=== PATIENT | male | born 1965 | race Caucasian/White ===

== ENCOUNTER → 2016-12-03 | Outpatient (CLI) | payer OTHER ==
--- NOTE | 2016-12-05 09:34 | EXERCISE STRESS ECHO ---
*NOTICE TO RECEIVING LIBERTARIAN AGENCY This information is strictly Confidential and protected under [place] law. [place] law prohibits you from making any further disclosure of this information unless further disclosure is expressly permitted by the written consent of the person to whom it pertains or is authorized by law. A general authorization for the release of medical or other information is not sufficient for this purpose. Hospital accepts no responsibility if the information is made available to any other person, INCLUDING THE PATIENT. Interpretation Summary * Name: LAMAR MARMOLEJO Study Date: 12/03/2016 08:51 AM BP: 144/83 mmHg * Patient Location: [facility] HR: 65 * : 1965 (M/d/yyyy) Gender: Male Height: 73 in * Age: 51 yrs Ethnicity: CA Weight: 230 lb * Ordering Physician: Alessandra Galvin * Referring Physician: Alessandra Galvin D.O. * Performed By: Amanda Guillen RDCS * * Reason For Study: SOB * BSA: 2.3 m2 * -- Conclusions -- * Normal stress echocardiogram at 12.9 METS and a peak heart rate of 97% predicted maximum. * No exercise induced chest pain. * No ECG changes. * Baseline echocardiogram notes normal left ventricular systolic function and no valvular pathology. Procedure Details * ECHOEX, CPT #02576 Left Ventricle * The left ventricle is normal in size. * There is normal left ventricular wall thickness. * Ejection Fraction = 60-65%. * Resting wall motion: Normal. Stress wall motion: Appropriate increase in Left ventricular systolic function and decrease in cavity size. No stress induced segmental wall motion abnormalities. Right Ventricle * The right ventricle is normal in size and function. Atria * The left atrium is mildly dilated. * Right atrial size is normal. * No ASD detected; PFO is not assessed. Mitral Valve * The mitral valve anatomy is normal. * There is no mitral valve stenosis. * Significant mitral regurgitation is absent. Tricuspid Valve * The tricuspid valve anatomy is normal. * Significant tricuspid regurgitation is absent. Aortic Valve * The aortic valve is normal in structure and function. * No hemodynamically significant valvular aortic stenosis. * There is no significant aortic regurgitation. Pulmonic Valve * The pulmonary valve is not well seen, but the Doppler examination is normal without significant regurgitation or stenosis. Great Vessels * The aortic root is normal size. * The pulmonary artery is not well visualized, but is probably normal size. Pericardium * There is no pericardial effusion. Stress Parameters * Normal baseline electrocardiogram. * Stress ECG: No ST changes. No arrhythmias. * The stress portion of this study was personally supervised by the undersigned interpreting physician. * Rest heart rate was '65' BPM. * Rest blood pressure was '144/83' * Maximum heart rate achieved was 166 bpm. * Maximum heart rate was 97 % of maximum age-predicted heart rate. * Maximum blood pressure was '206/82' * Total exercise time was '10:03' * Maximum exercise MET level achieved was '12.90' METS * Maximum treadmill speed was '4.20' miles per hour. * Maximum treadmill elevation was '16.00'% grade. * Exercise was terminated due to 'ACHIEVING TARGET HR' MMode 2D Measurements and Calculations IVSd 1.5 cm IVSs 1.7 cm LVIDd 4.1 cm LVIDs 2.7 cm LVPWd 1.2 cm LVPWs 1.6 cm IVS/LVPW 1.3 FS 34.3 % EDV(Teich) 72.7 ml ESV(Teich) 26.3 ml EF(Teich) 63.9 % EDV(cubed) 67.1 ml ESV(cubed) 19.0 ml EF(cubed) 71.7 % % IVS thick 8.0 % % LVPW thick 37.8 % LV mass(C)d 205.5 grams LV mass(C)dI 90.0 grams/m\S\2 LV mass(C)s 162.0 grams LV mass(C)sI 71.0 grams/m\S\2 SV(Teich) 46.4 ml SI(Teich) 20.3 ml/m\S\2 SV(cubed) 48.1 ml SI(cubed) 21.1 ml/m\S\2 LA dimension 4.0 cm LVAd ap4 34.3 cm\S\2 LVLd ap4 8.9 cm EDV(MOD-sp4) 109.0 ml LVAs ap4 18.1 cm\S\2 LVLs ap4 7.1 cm ESV(MOD-sp4) 38.9 ml EF(MOD-sp4) 64.3 % LVAd ap2 30.0 cm\S\2 LVLd ap2 8.9 cm EDV(MOD-sp2) 87.7 ml LVAs ap2 15.6 cm\S\2 LVLs ap2 6.8 cm ESV(MOD-sp2) 32.5 ml EF(MOD-sp2) 62.9 % SV(MOD-sp4) 70.1 ml SI(MOD-sp4) 30.7 ml/m\S\2 SV(MOD-sp2) 55.2 ml SI(MOD-sp2) 24.2 ml/m\S\2 Doppler Measurements and Calculations MV E max terra 66.8 cm/sec MV A max terra 53.1 cm/sec MV E/A 1.3 MV dec time 0.25 sec Ao V2 max 139.9 cm/sec Ao max PG 7.8 mmHg Ao max PG (full) 2.5 mmHg LV V1 max PG 5.4 mmHg LV V1 max 115.7 cm/sec
== END | disposition home or self-care (01) ==
LOC: C.CPL 08:44
PROVIDERS: ATTEND Family Medicine
DX: R06.02 Shortness of breath (principal)

== ENCOUNTER → 2016-12-08 | Outpatient (CLI) | payer OTHER ==
--- NOTE | 2016-12-08 09:49 | DIAGNOSTIC IMAGING REPORT ---
CHEST 2 VIEWS ROUTINE HISTORY: Short of breath. COMPARISON: None. FINDINGS: The lungs are clear. Cardiac silhouette is normal in size. No pleural effusions. No pneumothorax. IMPRESSION: No acute process. Electronically signed by: Nikita Danielle M.D. 12/08/2016 9:47 AM Dictated Date/Time: 12/08/2016 9:45 AM
== END | disposition home or self-care (01) ==
LOC: C.RAD 09:21
PROVIDERS: ATTEND Family Medicine
DX: R06.02 Shortness of breath (principal)

== ENCOUNTER 2018-07-19 15:58 | Inpatient (IN) ==
[2018-07-19 16:57] LABS: Basophils # (auto) 0.02 K/uL (0-0.2); Basophils % (auto) 0.1 %; Eosinophils # (auto) 0.08 K/uL (0-0.5); Eosinophils % (auto) 0.6 %; Hematocrit (blood only) 46.7 % (42-52); Hemoglobin 15.7 g/dL (14.0-18.0); Immature Granulocytes # (auto) 0.04 K/uL (0.00-0.02); Immature Granulocytes % (auto) 0.3 %; Lymphocytes # (auto) 1.23 K/uL (1.2-3.4); Mean Corpuscular Hgb Conc 33.6 g/dL (32-36); Mean Corpuscular Volume 92.7 fL (80-100); Mean Platelet Volume 11.1 fL (7.4-10.4); Monocytes # (auto) 1.39 K/uL (0.11-0.59); Monocytes % (auto) 10.1 %; Neutrophils # (auto) 10.96 K/uL (1.4-6.5); Neutrophils % (auto) 79.9 %; Platelet Count 165 K/uL (130-400); RDW Coefficient of Variation 13.7 % (11.5-14.5); RDW Standard Deviation 46.4 fL (36.4-46.3); Red Blood Count 5.04 M/uL (4.7-6.1); White Blood Count 13.72 K/uL (4.8-10.8)
[2018-07-19 17:00] LABS: iSTAT Hemoglobin 16.3 g/dl (14.0-18.0); iSTAT Ionized Calcium 1.11 mmol/l (1.12-1.32)
[2018-07-19] MEDS ORDERED: OPTIRAY 320 125ml IV PRN (17:16)
[2018-07-19 17:23] LABS: Alanine Aminotransferase 49 U/L (12-78); Aspartate Aminotransferase 16 U/L (15-37); BUN Creatinine Ratio 14.9 (10-20); Blood Urea Nitrogen 19 mg/dl (7-18); Carbon Dioxide 27 mmol/L (21-32); Chloride 102 mmol/L (98-107); Creatinine Clr Calc Pharmacy 85.9 ml/min; Est GFR (African American) 75.3; Glucose 97 mg/dl (70-99); Sodium 136 mmol/L (136-145)
[2018-07-19 17:28] LABS: Alkaline Phosphatase 76 U/L (45-117); Bilirubin,Total 0.5 mg/dl (0.2-1); Creatine Kinase 256 U/L (39-308); Creatine Kinase MB 1.6 ng/ml (0.5-3.6); Globulin 4.1 gm/dl (2.5-4.0); Total Protein 8.1 gm/dl (6.4-8.2); Troponin I < 0.015 ng/ml (0-0.045)
--- NOTE | 2018-07-19 17:30 | CT Scan Report ---
CT angio chest PE protocol CLINICAL HISTORY: 53 years-old Male presenting with [place] ^Chest Pain, eval for PE . TECHNIQUE: Multidetector CT angiography of the chest was performed after administration of intravenou s contrast. 3-D volumetric and/or maximum intensity projection (MIP) images were subsequently reconst ructed for review. IV contrast: 119 mL of Optiray 320. A dose lowering technique was used consistent with the principles of ALARA (as low as reasonably achievable). COMPARISON: Chest x-ray from 12/08/2016. CT DOSE (mGy.cm): The estimated cumulative dose is 578.14 mGy.cm. 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 Pulmonary vasculature: The study is suboptimal for the assessment of the pulmonary vascular tree secondary to timing of the contrast bolus. Allowing for limited image quality, no central filling defect to suggest pulmonary em bolus. Main pulmonary artery is not enlarged. No flattening of the interventricular septum. No intrac ardiac filling defect. No reflux of contrast into the hepatic veins. Remaining chest: On soft tissue windows, normal thyroid and thoracic inlet. No axillary, supraclavicular, hilar, or me diastinal lymphadenopathy. Normal aorta. Normal heart size. No pericardial or pleural effusion. Hepat ic steatosis. On lung windows, no pneumothorax. Central airways patent. Glass opacities likely atelectasis. Solid 3 .6 cm mass in the lateral segment of the right middle lobe with spiculated margins. Adjacent solid 4 mm satellite nodule (series 4 image 112), subpleural solid 6 mm nodule (series 4 image 119), and rich d 5 mm nodule (series 4 image 123). This abuts the overlying pleura though does not demonstrate convi ncing evidence of extrapleural fat invasion. No bony changes of the adjacent anterior right fourth ri b evident. Solid subpleural 3 mm nodule in the right upper lobe (series 4 image 166). Fissural solid slightly spiculated 6 mm nodule in the superior segment of the right lower lobe (series 4 image 156). Numerous additional punctate nodules in the right lung are nonspecific. Few calcified granulomata in the left lung. No pulmonary nodule is evident in the left lung. On bone windows, normal osseous structures. IMPRESSION: 1. Allowing for suboptimal image quality, no evidence of pulmonary embolus. 2. Solid 3.6 cm mass in the right middle lobe highly suspicious for primary bronchogenic carcinoma. Multiple satellite pulmonary nodules in the right middle lobe likely from spread of disease. Addition al solid nodules in the right lung are indeterminate and regional spread of disease cannot be exclude d. No lymphadenopathy. Electronically signed by: Robbie Mitchell M.D. 07/19/2018 5:28 PM
--- NOTE | 2018-07-19 17:41 | Ultrasound Report ---
US abdomen limited CLINICAL HISTORY: 53 years-old Male presenting with Pt c/o RUQ abd pain. TECHNIQUE: Real-time grayscale and limited color Doppler ultrasound imaging of the abdomen limited to the right upper quadrant was performed. COMPARISON: 03/08/2010. FINDINGS: Pancreas: Visualized portions of the pancreatic head and body normal. Liver: Mildly hyperechogenic parenchyma, although the right hemidiaphragm remains visible, likely ind icating mild steatosis. No sonographic evidence of hepatic mass. Main portal vein patent with normal directional flow. Biliary: No intrahepatic biliary ductal dilatation. Common bile duct measures up to 4 mm in diameter. Gallbladder: No evidence of gallstones, gallbladder wall thickening, gallbladder distention, or peric holecystic fluid or inflammatory change. Right kidney: Normal in appearance without evidence of hydronephrosis. Ascites: None. Other: None. IMPRESSION: 1. No cholelithiasis or biliary ductal dilatation. 2. Hepatic steatosis. Correlate with liver function tests to exclude steatohepatitis as a cause for abdominal pain. Electronically signed by: Robbie Mitchell M.D. 07/19/2018 5:40 PM
--- NOTE | 2018-07-19 19:32 | History & Physical Report ---
Date of Service July 19, 2018 Assessment & Plan (1) Lung mass: Mass in RML with satellite nodules suspicious for bronchogenic carcinoma. Patient with no clear risk factors. His is at bedside, they are both anxious and tearful * Will admit to medical floor * Consult Pulmonolgy for Bronchoscopy - will be done on July 21 * Oncology consultation after bronch * (2) Chest pain: Pleuritic, right anterior chest pain. No tenderness with palpation. Possibly secondary to underlying mass. EKG with no evidence of ischemia * Tylenol as needed for pain * F/E/N- Heplock, monitor electroytes and replete as needed, Regular diet as tolerated. NPO after midnight tomorrow for possible bronchoscopy on 07/21/18 Ppx - Lovenox for DVT prophylaxis Code - Full per discussion with patient Dispo - Admit to medical floor for continued workup of lung mass History of Present Illness Chief Complaint: Rib pain Primary Care Provider: Alessandra Galvin DO Patient is a 53-year-old male with no significant past medical or surgical history presenting with right anterior rib pain. Patient noticed the pain this morning, worse with deep inspiration. He was seen at [facility] earlier today where an EKG and chest x-ray were performed. Patient states that the EKG was normal but there were some suspicious findings on the chest x-ray therefore he was sent to the ER for additional workup. Patient had CTA of the chest performed which revealed a solid 3.6 cm mass in the right middle lobe highly suspicious for primary bronchogenic carcinoma. Also with multiple satellite pulmonary nodules in the right middle lobe likely from spread of disease. Additional solid nodules in the right lung are indeterminate and regional spread of disease cannot be excluded. No lymphadenopathy. Patient denies fevers/chills/sweats/weight loss. Denies chest pain/palpitations /cough/wheeze. He is a lifelong non-smoker. Physically active, walks approximately 5 miles per day and lifts weights every other day. 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 Was employed at a [employer] in the past. Patient reports having a colonoscopy and EGD last year which were both normal. Allergies Allergy/AdvReac Type Severity Reaction Status Date / Time No Known Allergies Allergy Unknown Verified 07/19/18 16:48 Home Medications Home Medications Medication Instructions Recorded Confirmed Type esomeprazole magnesium [Nexium] 20 mg PO DAILY PRN 07/19/18 07/19/18 History Past Med/Surg History Medical History No significant past medical history Surgical History S/P excision of lipoma Family History Other Colon cancer Gallbladder cancer Social History marital status: Current Living Situation: Spouse current occupational status: employed Feels Safe at Home: Yes Smoking Status: Never smoker Hx Alcohol Use: No Hx Substance Use: No Preferred Language: Czech Review of Systems All systems reviewed & are unremarkable except as noted in HPI & below Physical Exam 2 Vital Signs (Past 24 Hours): Last Vital Signs Temp 37.0 C 07/19/18 16:01 Pulse 90 07/19/18 16:52 Resp 19 07/19/18 16:50 BP 175/99 H 07/19/18 16:50 Pulse Ox 97 07/19/18 16:52 Physical Exam: General: patient resting comfortably, NAD, anxious in appearance, non-toxic, AA&O x 4 Skin: warm, dry, intact, no rashes or lesions HEENT: NC/AT, PERRL, EOMI, anicteric sclera, conjunctiva without injection, external ear normal to inspection and nontender, nares patent, moist mucus membranes, dentition intact, no oropharyngeal lesions, neck supple, trachea midline, no LAD, no thyromegaly, no JVD Heart: +S1/S2, regular, no m/r/g Lungs: equal air entry bilaterally, no rales/rhonchi/wheezes Abd: +BS, soft, NT/ND, no masses/organomegaly/ascites Ext: warm, 2+ pulses in UE/LE bilaterally, no clubbing/cyanosis or edema Neuro: nonfocal, patient AA&O x 4, speech intact, no facial droop, moving all extremities on command with equal strength 5/5 Results & Data Laboratory Results Lab Results 07/19/18 07/19/18 07/19/18 Range/Units 16:41 16:41 16:48 WBC 13.72 H (4.8-10.8) K/uL RBC 5.04 (4.7-6.1) M/uL Hgb 15.7 (14.0-18.0) g/dL POC Hgb 16.3 (14.0-18.0) g/dl Hct 46.7 (42-52) % POC Hct 48 (42-52) % MCV 92.7 (80-100) fL MCH 31.2 (25-34) pg MCHC 33.6 (32-36) g/dL RDW Std Deviation 46.4 H (36.4-46.3) fL RDW Coeff of Mindy 13.7 (11.5-14.5) % Plt Count 165 (130-400) K/uL MPV 11.1 H (7.4-10.4) fL Immature Gran % (Auto) 0.3 % Neut % (Auto) 79.9 % Lymph % (Auto) 9.0 % [place] % (Auto) 10.1 % Eos % (Auto) 0.6 % Baso % (Auto) 0.1 % Immature Gran # (Auto) 0.04 H (0.00-0.02) K/uL Neut # (Auto) 10.96 H (1.4-6.5) K/uL Lymph # (Auto) 1.23 (1.2-3.4) K/uL [place] # (Auto) 1.39 H (0.11-0.59) K/uL Eos # (Auto) 0.08 (0-0.5) K/uL Baso # (Auto) 0.02 (0-0.2) K/uL POC Sodium 139 (135-144) mEq/L Sodium 136 (136-145) mmol/L POC Potassium 3.9 (3.3-5.0) mEq/L Potassium 4.0 (3.5-5.1) mmol/L POC Chloride 100 L (101-112) mEq/L Chloride 102 (98-107) mmol/L Carbon Dioxide 27 (21-32) mmol/L POC Total CO2 27 (24-31) mEq/l Anion Gap 7.0 (3-11) POC Anion Gap 17.0 (16-25) mmol/L POC BUN 20 H (7-18) mg/dl BUN 19 H (7-18) mg/dl Creatinine 1.27 (0.6-1.4) mg/dl POC Creatinine 1.2 (0.6-1.3) mg/dl Est Cr Clr Drug Dosing 85.9 ml/min Est GFR ( Amer) 75.3 Est GFR (Non-Af Amer) 65.0 BUN/Creatinine Ratio 14.9 (10-20) Glucose 97 (70-99) mg/dl POC Glucose (other) 103 H (70-99) mg/dl Calcium 9.0 (8.5-10.1) mg/dl POC Ioniz Calcium Mark 1.11 L (1.12-1.32) mmol/l Total Bilirubin 0.5 (0.2-1) mg/dl AST 16 (15-37) U/L ALT 49 (12-78) U/L Alkaline Phosphatase 76 (45-117) U/L Total Creatine Kinase 256 (39-308) U/L CK-MB (CK-2) 1.6 (0.5-3.6) ng/ml CK/CKMB % Calc 0.6 (0-3.0) Troponin I < 0.015 (0-0.045) ng/ml Total Protein 8.1 (6.4-8.2) gm/dl Albumin 4.0 (3.4-5.0) gm/dl Globulin 4.1 H (2.5-4.0) gm/dl Albumin/Globulin Ratio 1.0 (0.9-2) Lipase 142 (73-393) U/L Diagnostic Findings CT angio chest PE protocol CLINICAL HISTORY: 53 years-old Male presenting with [place] ^Chest Pain, eval for PE . TECHNIQUE: Multidetector CT angiography of the chest was performed after administration of intravenous contrast. 3-D volumetric and/or maximum intensity projection (MIP) images were subsequently reconstructed for review. IV contrast : 119 mL of Optiray 320. A dose lowering technique was used consistent with the principles of ALARA (as low as reasonably achievable). COMPARISON: Chest x-ray from 12/08/2016. CT DOSE (mGy.cm): The estimated cumulative dose is 578.14 mGy.cm. 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 Pulmonary vasculature: The study is suboptimal for the assessment of the pulmonary vascular tree secondary to timing of the contrast bolus. Allowing for limited image quality, no central filling defect to suggest pulmonary embolus. Main pulmonary artery is not enlarged. No flattening of the interventricular septum. No intracardiac filling defect. No reflux of contrast into the hepatic veins. Remaining chest: On soft tissue windows, normal thyroid and thoracic inlet. No axillary, supraclavicular, hilar, or mediastinal lymphadenopathy. Normal aorta. Normal heart size. No pericardial or pleural effusion. Hepatic steatosis. On lung windows, no pneumothorax. Central airways patent. Glass opacities likely atelectasis. Solid 3.6 cm mass in the lateral segment of the right middle lobe with spiculated margins. Adjacent solid 4 mm satellite nodule ( series 4 image 112), subpleural solid 6 mm nodule (series 4 image 119), and solid 5 mm nodule (series 4 image 123). This abuts the overlying pleura though does not demonstrate convincing evidence of extrapleural fat invasion. No bony changes of the adjacent anterior right fourth rib evident. Solid subpleural 3 mm nodule in the right upper lobe (series 4 image 166). Fissural solid slightly spiculated 6 mm nodule in the superior segment of the right lower lobe (series 4 image 156). Numerous additional punctate nodules in the right lung are nonspecific. Few calcified granulomata in the left lung. No pulmonary nodule is evident in the left lung. On bone windows, normal osseous structures. IMPRESSION: 1. Allowing for suboptimal image quality, no evidence of pulmonary embolus. 2. Solid 3.6 cm mass in the right middle lobe highly suspicious for primary bronchogenic carcinoma. Multiple satellite pulmonary nodules in the right middle lobe likely from spread of disease. Additional solid nodules in the right lung are indeterminate and regional spread of disease cannot be excluded. No lymphadenopathy. Electronically signed by: Robbie Mitchell M.D. 07/19/2018 5:28 PM US abdomen limited CLINICAL HISTORY: 53 years-old Male presenting with Pt c/o RUQ abd pain. TECHNIQUE: Real-time grayscale and limited color Doppler ultrasound imaging of the abdomen limited to the right upper quadrant was performed. COMPARISON: 03/08/2010. FINDINGS: Pancreas: Visualized portions of the pancreatic head and body normal. Liver: Mildly hyperechogenic parenchyma, although the right hemidiaphragm remains visible, likely indicating mild steatosis. No sonographic evidence of hepatic mass. Main portal vein patent with normal directional flow. Biliary: No intrahepatic biliary ductal dilatation. Common bile duct measures up to 4 mm in diameter. Gallbladder: No evidence of gallstones, gallbladder wall thickening, gallbladder distention, or pericholecystic fluid or inflammatory change. Right kidney: Normal in appearance without evidence of hydronephrosis. Ascites: None. Other: None. IMPRESSION: 1. No cholelithiasis or biliary ductal dilatation. 2. Hepatic steatosis. Correlate with liver function tests to exclude steatohepatitis as a cause for abdominal pain. Electronically signed by: Robbie Mitchell M.D. 07/19/2018 5:40 PM ECG Additional Comments: Study shows sinus rhythm at 100 bpm, normal axis, RQ=789, QRS=96, RJa=202 with incomplete right bundle branch block no evidence of acute ischemia Code Status & VTE Plan Code Status Full code VTE Prophylaxis Plan VTE Prophylaxis will be ordered: Yes Critical Care Time Critical Care Time: No _ (1) Chest pain Chest pain type: unspecified Ischemic chest pain type: Qualified Code(s): R07.9 - Chest pain, unspecified
[2018-07-19] MEDS ORDERED: ACETAMINOPHEN 325 MG TAB PO PRN (20:21)
[2018-07-19] MEDS ORDERED: ZOLPIDEM TARTRATE 5 MG TAB PO PRN (20:21)
[2018-07-19] MEDS ORDERED: INFLUENZA VIRUS QUAD VACCINE 0.5 ML SYR IM ONE (21:30)
[2018-07-19] MEDS ORDERED: INFLUENZA ADMINISTRATION CHARGE ONE (21:30)
[2018-07-20 07:34] LABS: Prothrombin Time 10.1 Seconds (9.0-12.0)
[2018-07-20 08:03] LABS: BUN Creatinine Ratio 11.5 (10-20); Calcium 9.1 mg/dl (8.5-10.1); Creatinine Clr Calc Pharmacy 93.2 ml/min; Est GFR (African American) 83.2; Est GFR (Non-African American) 71.8; Potassium 4.2 mmol/L (3.5-5.1)
[2018-07-20 08:05] LABS: Basophils # (auto) 0.01 K/uL (0-0.2); Basophils % (auto) 0.1 %; Eosinophils # (auto) 0.06 K/uL (0-0.5); Eosinophils % (auto) 0.5 %; Hemoglobin 15.5 g/dL (14.0-18.0); Immature Granulocytes # (auto) 0.03 K/uL (0.00-0.02); Immature Granulocytes % (auto) 0.3 %; Lymphocytes # (auto) 1.37 K/uL (1.2-3.4); Lymphocytes % (auto) 11.9 %; Mean Corpuscular Hgb Conc 33.7 g/dL (32-36); Mean Corpuscular Volume 92.4 fL (80-100); Mean Platelet Volume 10.6 fL (7.4-10.4); Monocytes # (auto) 1.59 K/uL (0.11-0.59); Monocytes % (auto) 13.8 %; Neutrophils # (auto) 8.48 K/uL (1.4-6.5); Neutrophils % (auto) 73.4 %; Platelet Count 164 K/uL (130-400); RDW Coefficient of Variation 13.5 % (11.5-14.5); RDW Standard Deviation 45.4 fL (36.4-46.3); Red Blood Count 4.98 M/uL (4.7-6.1); White Blood Count 11.54 K/uL (4.8-10.8)
[2018-07-20] MEDS ORDERED: predniSONE 50 MG TAB PO SCH (12:30)
--- NOTE | 2018-07-20 14:47 | Pulmonary Consultation ---
Date of Consultation July 20, 2018 Assessment & Plan (1) Lung mass: Impression: 1. Right middle lobe lung nodule with multiple nodules around it, and inflammatory changes in a patient who is low risk for malignancy given the fact he is non-smoker with no industrial exposure, no secondhand exposure to smoking , place the patient at very low risk for malignancy. The changes in his lung likely representing inflammatory versus infectious, he recently has dental work with dental clinic which could represent strep species versus actinomyces. 2. Pleuritic chest pain secondary to above. Plan: 1. I will treat the patient empirically with penicillin derivatives such as Augmentin for at least 14 days. 2. I will start the patient on prednisone empirically as well with 50 mg daily for 7 days only. 3. The patient has a recent trip to [place] but I am not aware of him had sick contact. Concerns about fungal infection from that area is a possibility. 4. His father has a history of colon cancer and cholangiole cancer but he was at later age and his father has history of ulcerative colitis. 5. Long Discussion Took Place with him and his , the plan is to continue with above regimen, obtain a PET scan next week, and if the PET scan is positive will proceed with navigational bronchoscopy. I have discussed the case with radiology, and they favor starting out with bronchoscopy if needed. 6. The patient can be discharged home with above. Discussed with Dr. Schmitt, appreciate his assistance. Thank you History of Present Illness Reason for Consultation: Lung nodule Requesting Physician: Dr. Schmitt Attending Physician: Vernon Schmitt History of Present Illness Dear Dr. Schmitt: Thank you for your kind referral of Mr. Reddy to pulmonary service. This is a 53-year-old gentleman who has been in his usual status of health, he is non -smoker lifetime, has been healthy and going to the gym and every day, presented to the ED with right-sided pleuritic chest pain that has been persistent for several hours prior to his presentation, the patient denies any cough or sputum production, no weight loss, no fever and no constitutional symptoms no sick contact. He did have a dental work with dental cleaning over a month ago. The patient did not have any sore throat rhinorrhea constitutional symptoms no increased swelling in his lower extremities no rash no abdominal pain no nausea or vomiting no dysphasia or dysphonia no blurry vision and no skin changes. In the ED, the patient was evaluated for the findings noted on the urgent care chest x-ray showing abnormality in the right chest. CAT scan of the chest was done which showed inflammatory changes with lung nodule and multiple satellite lesions also affecting the right middle lobe. The patient was not aware of any other symptoms or any previous history of pulmonary disease. He does not use even inhalers. 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 He has no significant past medical history, family history is consistent with his father who has ulcerative colitis, colon cancer but it was at later age in his life. He does have also cholangial. cancer as well. No significant surgical history either. Allergies Allergy/AdvReac Type Severity Reaction Status Date / Time No Known Allergies Allergy Unknown Verified 07/19/18 16:48 Home Medications Home Medications Medication Instructions Recorded Confirmed Type esomeprazole magnesium [Nexium] 20 mg PO DAILY PRN 07/19/18 07/19/18 History amoxicillin-pot clavulanate 1 tab PO BID #14 tab 07/20/18 Rx [Augmentin] prednisone 10 mg PO UD #20 tab 07/20/18 Rx Patient History Medical History GERD (gastroesophageal reflux disease) No significant past medical history Surgical History S/P excision of lipoma Family History Other Colon cancer Gallbladder cancer Social History marital status: Current Living Situation: Spouse current occupational status: employed Other Information That Helps Us Care for You: No Feels Safe at Home: Yes Smoking Status: Never smoker Do You Dip or Chew Tobacco: No Second Hand Exposure: No Hx Alcohol Use: Yes Alcohol type: wine Alcohol Intake Frequency: a few times a week Hx Substance Use: No Beliefs That Will Affect Care: None Preferred Language: Turkmen Review of Systems Apart from the above, review of system was unremarkable. Physical Exam 2 Vital Signs (Past 24 Hours): Last Vital Signs Temp 37.3 C 07/20/18 12:07 Pulse 79 07/20/18 12:07 Resp 18 07/20/18 12:07 BP 151/93 H 07/20/18 12:07 Pulse Ox 96 07/20/18 12:07 Physical Exam: Vital signs are stable, no fever, S1-S2 regular rate and rhythm , slight elevation in the blood pressure, no lymphadenopathy in neck area, no JVP, heart examination S1-S2 regular rate and rhythm, lungs are clear, abdomen is benign, no edema. No changes or clubbing in his digits. No rash no joint swelling and neurologically he is nonfocal.
[2018-07-20] MEDS ORDERED: AMOXICILLIN/CLAVULANATE 875 MG TAB PO SCH (17:00)
--- NOTE | 2018-07-21 05:41 | Discharge Summary ---
Date of Service July 20, 2018 Admission HPI Per Admitting Provider Patient is a 53-year-old male with no significant past medical or surgical history presenting with right anterior rib pain. Patient noticed the pain this morning, worse with deep inspiration. He was seen at [facility] earlier today where an EKG and chest x-ray were performed. Patient states that the EKG was normal but there were some suspicious findings on the chest x-ray therefore he was sent to the ER for additional workup. Patient had CTA of the chest performed which revealed a solid 3.6 cm mass in the right middle lobe highly suspicious for primary bronchogenic carcinoma. Also with multiple satellite pulmonary nodules in the right middle lobe likely from spread of disease. Additional solid nodules in the right lung are indeterminate and regional spread of disease cannot be excluded. No lymphadenopathy. Patient denies fevers/chills/sweats/weight loss. Denies chest pain/palpitations /cough/wheeze. He is a lifelong non-smoker. Physically active, walks approximately 5 miles per day and lifts weights every other day. 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 Was employed at a [employer] in the past. Patient reports having a colonoscopy and EGD last year which were both normal. Principal Diagnosis Lung Mass likely infectious Discharge Exam Constitutional WD/WN, vitals as above well developed and well nourished Eyes PERRL, conjunctivae normal, anicteric sclerae Neck trachea midline, no thyromegaly Respiratory normal respiratory effort, lungs clear to auscultation Cardiovascular RRR, no murmur, no edema Gastrointestinal (Abdomen) normal bowel sounds, soft, nontender, no hepatosplenomegaly Neurologic moves all extremities Lymphatic no cervical or axillary lymphadenopathy Discharge Data Allergies Allergy/AdvReac Type Severity Reaction Status Date / Time No Known Allergies Allergy Unknown Verified 07/19/18 16:48 Consultations 07/20/18 12:01 Consult [facility] track dresser Routine 07/19/18 18:30 ED Decision to Admit Stat 07/19/18 20:21 Consult Pulmonology Routine Ordered Studies 07/19/18 16:30 US abdomen limited Stat 07/19/18 16:31 CT angio chest PE protocol Stat Hospital Course (1) Lung mass: Mass in RML with satellite nodules suspicious for bronchogenic carcinoma. Patient with no clear risk factors. His is at bedside, they are both anxious and tearful * Will admit to medical floor * Consult Pulmonolgy for Bronchoscopy - will be done on July 21 * Oncology consultation after bronch * * Appreciate input from Pulmonology. * will treat the patient empirically with penicillin derivatives such as Augmentin for at least 14 days. Will discharge on prednisone taper Long Discussion Took Place with him and his , the plan is to continue with above regimen, obtain a PET scan next week, and if the PET scan is positive will proceed with navigational bronchoscopy. I have discussed the case with radiology, and they favor starting out with bronchoscopy if needed. The patient can be discharged home with above. (2) Chest pain: Pleuritic, right anterior chest pain. No tenderness with palpation. Possibly secondary to underlying mass. EKG with no evidence of ischemia * Tylenol as needed for pain * Total Time Total Time Spent Total Time Spent (In Minutes): 35 minutes Total Time Includes: Examination of the Patient, Discharge Planning and Medication Reconciliation Discharge Plan Discharge Items Patient Disposition: Home - Self-Care Reason For Visit: LUNG MASS Discharge Diagnosis: Lung mass, likely infectious Condition: Fair Discharge Goals: Decrease discomfort and Improve function Activity: Resume your previous activity Non-emergency contact: Primary Care Provider Call non-emergency contact if: you have any medication questions Diet: Regular Addtl Provider Instructions: Followup with PCP in 1-2 weeks. will obtain PET scan this week. Prescriptions: New amoxicillin-pot clavulanate [Augmentin] 875-125 mg tablet 1 tab PO BID Qty: 14 RF: 0 prednisone 10 mg tablet 10 mg PO UD Qty: 20 RF: 0 Continue esomeprazole magnesium [Nexium] 20 mg Capsule,Delayed Release(Dr/Ec) 20 mg PO DAILY PRN (Reason: Gi Upset) RF: 0 Visit Report Forms: [facility] [employer] Stand-Alone Forms: [facility] Discharge Orders: Discharge Order (Routine); Ordered 07/20/18 Ordered By: Vernon Schmitt Admission Data Admit Date/Time: 07/19/18 19:28 Attending Provider: Vernon Schmitt Admit Provider: Amanda Hackett Primary Care Provider: Alessandra Galvin Other Providers: Kenia Escobar Service: Surgical Services Other Interventions: Discharge Summary Assessment (RN) Last Done: 07/20/18 12:07 DC Date/Time DO NOT enter until pt leaves facility: 07/20/18 12:35
--- NOTE | 2018-07-23 12:22 | Emergency Department Note ---
Entered by Tanya Riggins acting as a scribe for Efrain Forman MD History of Present Illness General Chief complaint: Referred by Doctor Stated complaint: REFERRED BY DOCTOR, PAIN IN SIDE Time Seen by Provider: 07/19/18 16:22 Source: patient History of Present Illness Onset (ago): hour(s) (6.5) Location: abdomen (right upper) Radiation: other (right shoulder) Pain Consistency: + constant Maximum Pain Intensity: 4 Quality: + sharp Exacerbated By: + other (deep breaths) Associated symptoms: no shortness of breath The patient is a 53 year old male who presents to the Emergency Room with complaints of constant right upper abdominal pain that began 6.5 hours prior to arrival. The patient describes this pain as sharp. He states that his pain is exacerbated with deep breaths. The patient states his pain radiates to his right shoulder. He denies shortness of breath. The patient states that his pain began 1 hour after he ate breakfast. He states that he still has his gallbladder. Home Medications Home Medications Medication Instructions Recorded Confirmed Type esomeprazole magnesium [Nexium] 20 mg PO DAILY PRN 07/19/18 07/19/18 History amoxicillin-pot clavulanate 1 tab PO BID #14 tab 07/20/18 Rx [Augmentin] prednisone 10 mg PO UD #20 tab 07/20/18 Rx Allergies Allergy/AdvReac Type Severity Reaction Status Date / Time No Known Allergies Allergy Unknown Verified 07/19/18 16:48 Past Med/Surg History Medical History GERD (gastroesophageal reflux disease) No significant past medical history Surgical History S/P excision of lipoma Family History Other Colon cancer Gallbladder cancer Social History marital status: Current Living Situation: Spouse current occupational status: employed Other Information That Helps Us Care for You: No Feels Safe at Home: Yes Smoking Status: Never smoker Do You Dip or Chew Tobacco: No Second Hand Exposure: No Hx Alcohol Use: Yes Alcohol type: wine Alcohol Intake Frequency: a few times a week Hx Substance Use: No Beliefs That Will Affect Care: None Preferred Language: Armenian Review of Systems See HPI for pertinent positives & negatives. and A total of 10 systems reviewed and were otherwise negative Physical Exam Vital Signs Vital Signs - 24 hr 07/19/18 16:01 07/19/18 16:50 07/19/18 16:52 Temperature 98.6 F Temperature Source Oral Sepsis Recent Fever Within 48 Hours No Sepsis New/Unexplained Change in Mental Status No Sepsis Action Taken by Nursing No Action Required Pulse Rate 92 H 90 Pulse Rate [Right Finger] 90 Pulse Rhythm Regular Regular Pulse Strength Normal Respiratory Rate 20 19 Respiratory Effort / Characteristics Non-Labored Spontaneous Nasal Congestion Respiratory Depth Normal Blood Pressure 170/93 H Blood Pressure [Left Arm] 175/99 H Blood Pressure Mean 118 Blood Pressure Mean [Left Arm] 124 Pulse Oximetry 98 97 97 Oxygen Delivery Method Room Air Room Air GENERAL: Awake, alert, well-appearing, in no distress HENT: Normocephalic, atraumatic. Oropharynx unremarkable. EYES: Normal conjunctiva. Sclera non-icteric. NECK: Supple. No nuchal rigidity. FROM. No masses. RESPIRATORY: Clear to auscultation. No wheezes. No rales. Normal respiratory effort. CARDIAC: Normal rate. Normal rhythm. No murmurs. No rubs. Extremities warm and well perfused. Pulses equal. No JVD. GI: Soft, non-distended. No tenderness to palpation. No rebound or guarding. No masses. RECTAL: Deferred. MUSCULOSKELETAL: Atraumatic. Chest examination reveals no tenderness. The back is symmetrical on inspection without obvious abnormality. There is no CVA tenderness to palpation. No joint edema. LOWER EXTREMITIES: Calves are equal size bilaterally and non-tender. No edema. No discoloration. NEURO: Normal sensorium. No sensory or motor deficits noted. SKIN: No rash or jaundice noted. Course 1622: Past medical records reviewed. The patient was evaluated in room C8, and a complete history and physical examination were performed. 1801: I discussed the case with Dr. Ruben Ch ICU. We discussed Bronch options for the paitent. 1805: I updated the patient on the results. 1826: I discussed the case with Dr. Shun Ch Hospitalist who will further evaluate the patient. Consultations Consultation #1: I discussed the case with Dr. Ruben Ch ICU. We discussed Bronch options for the paitent. Time: 18:02 Consultation #2: I discussed the case with Dr. Hackett[facility] Hospitalist who will further evaluate the patient. Time: 18:27 Administered Medications Discontinued Medications Influenza Virus Vaccine Quadrival (Flucelvax Quad Vaccine) 0.5 ml IM .ONCE ONE Stop: 07/19/18 21:31 Last Admin: 07/20/18 05:48 Dose: 0.5 ml Ioversol (Optiray 320 125ml) 119 ml IV ONCE PRN PRN Reason: Interaction Checking Stop: 07/23/18 17:15 Last Admin: 07/19/18 17:16 Dose: 1 ml Medical Decision Making Differential Diagnosis Differential diagnosis: Etiologies such as shingles, musculoskeletal pain, pericarditis, myocarditis, cardiac ischemia, pericardial tamponade, pneumonia, pneumothorax, pleural effusion, hemothorax, pleurisy, aortic pathology, pulmonary embolism, intra- abdominal process, as well as others were considered. Medical Records Attestation: I reviewed the patient's medical records. Home Medications Current Medication List: was personally reviewed by me Laboratory Data Attestation: I reviewed the patient's lab results. Result diagrams: 07/20/18 07:02 07/20/18 07:02 Lab Results 07/19/18 07/19/18 07/19/18 Range/Units 16:41 16:41 16:48 WBC 13.72 H (4.8-10.8) K/uL RBC 5.04 (4.7-6.1) M/uL Hgb 15.7 (14.0-18.0) g/dL POC Hgb 16.3 (14.0-18.0) g/dl Hct 46.7 (42-52) % POC Hct 48 (42-52) % MCV 92.7 (80-100) fL MCH 31.2 (25-34) pg MCHC 33.6 (32-36) g/dL RDW Std Deviation 46.4 H (36.4-46.3) fL RDW Coeff of Mindy 13.7 (11.5-14.5) % Plt Count 165 (130-400) K/uL MPV 11.1 H (7.4-10.4) fL Immature Gran % (Auto) 0.3 % Neut % (Auto) 79.9 % Lymph % (Auto) 9.0 % Davis % (Auto) 10.1 % Eos % (Auto) 0.6 % Baso % (Auto) 0.1 % Immature Gran # (Auto) 0.04 H (0.00-0.02) K/uL Neut # (Auto) 10.96 H (1.4-6.5) K/uL Lymph # (Auto) 1.23 (1.2-3.4) K/uL Davis # (Auto) 1.39 H (0.11-0.59) K/uL Eos # (Auto) 0.08 (0-0.5) K/uL Baso # (Auto) 0.02 (0-0.2) K/uL PT (9.0-12.0) Seconds INR (0.9-1.1) POC Sodium 139 (135-144) mEq/L Sodium 136 (136-145) mmol/L POC Potassium 3.9 (3.3-5.0) mEq/L Potassium 4.0 (3.5-5.1) mmol/L POC Chloride 100 L (101-112) mEq/L Chloride 102 (98-107) mmol/L Carbon Dioxide 27 (21-32) mmol/L POC Total CO2 27 (24-31) mEq/l Anion Gap 7.0 (3-11) POC Anion Gap 17.0 (16-25) mmol/L POC BUN 20 H (7-18) mg/dl BUN 19 H (7-18) mg/dl Creatinine 1.27 (0.6-1.4) mg/dl POC Creatinine 1.2 (0.6-1.3) mg/dl Est Cr Clr Drug Dosing 85.9 ml/min Est GFR ( Amer) 75.3 Est GFR (Non-Af Amer) 65.0 BUN/Creatinine Ratio 14.9 (10-20) Glucose 97 (70-99) mg/dl POC Glucose (other) 103 H (70-99) mg/dl Calcium 9.0 (8.5-10.1) mg/dl POC Ioniz Calcium Mark 1.11 L (1.12-1.32) mmol/l Total Bilirubin 0.5 (0.2-1) mg/dl AST 16 (15-37) U/L ALT 49 (12-78) U/L Alkaline Phosphatase 76 (45-117) U/L Total Creatine Kinase 256 (39-308) U/L CK-MB (CK-2) 1.6 (0.5-3.6) ng/ml CK/CKMB % Calc 0.6 (0-3.0) Troponin I < 0.015 (0-0.045) ng/ml Total Protein 8.1 (6.4-8.2) gm/dl Albumin 4.0 (3.4-5.0) gm/dl Globulin 4.1 H (2.5-4.0) gm/dl Albumin/Globulin Ratio 1.0 (0.9-2) Lipase 142 (73-393) U/L 07/20/18 07/20/18 07/20/18 Range/Units 07:02 07:02 07:02 WBC 11.54 H (4.8-10.8) K/uL RBC 4.98 (4.7-6.1) M/uL Hgb 15.5 (14.0-18.0) g/dL POC Hgb (14.0-18.0) g/dl Hct 46.0 (42-52) % POC Hct (42-52) % MCV 92.4 (80-100) fL MCH 31.1 (25-34) pg MCHC 33.7 (32-36) g/dL RDW Std Deviation 45.4 (36.4-46.3) fL RDW Coeff of Mindy 13.5 (11.5-14.5) % Plt Count 164 (130-400) K/uL MPV 10.6 H (7.4-10.4) fL Immature Gran % (Auto) 0.3 % Neut % (Auto) 73.4 % Lymph % (Auto) 11.9 % Davis % (Auto) 13.8 % Eos % (Auto) 0.5 % Baso % (Auto) 0.1 % Immature Gran # (Auto) 0.03 H (0.00-0.02) K/uL Neut # (Auto) 8.48 H (1.4-6.5) K/uL Lymph # (Auto) 1.37 (1.2-3.4) K/uL Davis # (Auto) 1.59 H (0.11-0.59) K/uL Eos # (Auto) 0.06 (0-0.5) K/uL Baso # (Auto) 0.01 (0-0.2) K/uL PT 10.1 (9.0-12.0) Seconds INR 1.0 (0.9-1.1) POC Sodium (135-144) mEq/L Sodium 137 (136-145) mmol/L POC Potassium (3.3-5.0) mEq/L Potassium 4.2 (3.5-5.1) mmol/L POC Chloride (101-112) mEq/L Chloride 103 (98-107) mmol/L Carbon Dioxide 27 (21-32) mmol/L POC Total CO2 (24-31) mEq/l Anion Gap 7.0 (3-11) POC Anion Gap (16-25) mmol/L POC BUN (7-18) mg/dl BUN 14 (7-18) mg/dl Creatinine 1.17 (0.6-1.4) mg/dl POC Creatinine (0.6-1.3) mg/dl Est Cr Clr Drug Dosing 93.2 ml/min Est GFR ( Amer) 83.2 Est GFR (Non-Af Amer) 71.8 BUN/Creatinine Ratio 11.5 (10-20) Glucose 109 H (70-99) mg/dl POC Glucose (other) (70-99) mg/dl Calcium 9.1 (8.5-10.1) mg/dl POC Ioniz Calcium Mark (1.12-1.32) mmol/l Total Bilirubin (0.2-1) mg/dl AST (15-37) U/L ALT (12-78) U/L Alkaline Phosphatase (45-117) U/L Total Creatine Kinase (39-308) U/L CK-MB (CK-2) (0.5-3.6) ng/ml CK/CKMB % Calc (0-3.0) Troponin I (0-0.045) ng/ml Total Protein (6.4-8.2) gm/dl Albumin (3.4-5.0) gm/dl Globulin (2.5-4.0) gm/dl Albumin/Globulin Ratio (0.9-2) Lipase (73-393) U/L Imaging Data Radiologist's Impression: Radiology results as stated below per my review and the radiologist's interpretation: CT angio chest PE protocol CLINICAL HISTORY: 53 years-old Male presenting with [place] ^Chest Pain, eval for PE . TECHNIQUE: Multidetector CT angiography of the chest was performed after administration of intravenous contrast. 3-D volumetric and/or maximum intensity projection (MIP) images were subsequently reconstructed for review. IV contrast : 119 mL of Optiray 320. A dose lowering technique was used consistent with the principles of ALARA (as low as reasonably achievable). COMPARISON: Chest x-ray from 12/08/2016. CT DOSE (mGy.cm): The estimated cumulative dose is 578.14 mGy.cm. FINDINGS: Content Producer topogram: Left lower lung nodular opacity new from 2017. Pulmonary vasculature: The study is suboptimal for the assessment of the pulmonary vascular tree secondary to timing of the contrast bolus. Allowing for limited image quality, no central filling defect to suggest pulmonary embolus. Main pulmonary artery is not enlarged. No flattening of the interventricular septum. No intracardiac filling defect. No reflux of contrast into the hepatic veins. Remaining chest: On soft tissue windows, normal thyroid and thoracic inlet. No axillary, supraclavicular, hilar, or mediastinal lymphadenopathy. Normal aorta. Normal heart size. No pericardial or pleural effusion. Hepatic steatosis. On lung windows, no pneumothorax. Central airways patent. Glass opacities likely atelectasis. Solid 3.6 cm mass in the lateral segment of the right middle lobe with spiculated margins. Adjacent solid 4 mm satellite nodule ( series 4 image 112), subpleural solid 6 mm nodule (series 4 image 119), and solid 5 mm nodule (series 4 image 123). This abuts the overlying pleura though does not demonstrate convincing evidence of extrapleural fat invasion. No bony changes of the adjacent anterior right fourth rib evident. Solid subpleural 3 mm nodule in the right upper lobe (series 4 image 166). Fissural solid slightly spiculated 6 mm nodule in the superior segment of the right lower lobe (series 4 image 156). Numerous additional punctate nodules in the right lung are nonspecific. Few calcified granulomata in the left lung. No pulmonary nodule is evident in the left lung. On bone windows, normal osseous structures. IMPRESSION: 1. Allowing for suboptimal image quality, no evidence of pulmonary embolus. 2. Solid 3.6 cm mass in the right middle lobe highly suspicious for primary bronchogenic carcinoma. Multiple satellite pulmonary nodules in the right middle lobe likely from spread of disease. Additional solid nodules in the right lung are indeterminate and regional spread of disease cannot be excluded. No lymphadenopathy. Electronically signed by: Robbie Mitchell M.D. 07/19/2018 5:28 PM US abdomen limited CLINICAL HISTORY: 53 years-old Male presenting with Pt c/o RUQ abd pain. TECHNIQUE: Real-time grayscale and limited color Doppler ultrasound imaging of the abdomen limited to the right upper quadrant was performed. COMPARISON: 03/08/2010. FINDINGS: Pancreas: Visualized portions of the pancreatic head and body normal. Liver: Mildly hyperechogenic parenchyma, although the right hemidiaphragm remains visible, likely indicating mild steatosis. No sonographic evidence of hepatic mass. Main portal vein patent with normal directional flow. Biliary: No intrahepatic biliary ductal dilatation. Common bile duct measures up to 4 mm in diameter. Gallbladder: No evidence of gallstones, gallbladder wall thickening, gallbladder distention, or pericholecystic fluid or inflammatory change. Right kidney: Normal in appearance without evidence of hydronephrosis. Ascites: None. Other: None. IMPRESSION: 1. No cholelithiasis or biliary ductal dilatation. 2. Hepatic steatosis. Correlate with liver function tests to exclude steatohepatitis as a cause for abdominal pain. Electronically signed by: Robbie Mitchell M.D. 07/19/2018 5:40 PM ECG Data Attestation: I personally reviewed and interpreted this ECG as follows: Indication: chest pain Rate (beats per minute): 100 Rhythm: normal sinus Findings: + other (normal ECG); no ST depression and no ST elevation Blood Pressure Blood Pressure Findings: Elevated blood pressure Blood Pressure Disposition: further management by hospitalist BRITT Cortés This is a 53-year-old male who presents emergency department complaining of right-sided chest pain. The patient presents with an x-ray from [email or web address] which is concerning for a nodule. Patient has a normal EKG as well as normal cardiac enzymes. Based on the patient's complaint as well as the x-ray from [facility] and using shared medical decision making with both the patient and his the decision was made to send the patient for a CAT scan of the chest. This was concerning for some sort of mass. I had a lengthy discussion with both the patient and his that I am unsure of what this represents as he does not have any known risk factors. I did suggest that the next plan of action would be to be to have a bronchoscopy. I gave them several options including going home and having close follow-up with the primary care physician or being admitted to get a better look at this finding. Patient and his would like to be admitted. I did discuss the case with both who were in agreement with the treatment plan. Impression & Plan Chest pain, Lung mass Discharge Plan Visit Data *Final* Discharge Date/Time: 07/19/18 20:02 Chief Complaint: Referred by Doctor Stated Complaint: REFERRED BY DOCTOR, PAIN IN SIDE ED Provider: Efrain Forman Discharge Problem: Chest pain, Lung mass Patient Disposition: Admitted As Inpatient Condition: Fair Discharge Instructions Interventions: ED Discharge Assessment Last Done: 07/19/18 20:02 The scribe's documentation has been prepared under my direction and personally reviewed by me in its entirety. I confirm that the note above accurately reflects all work, treatment, procedures, and medical decision making performed by me.
--- NOTE | 2018-07-26 06:41 | Coding Query ---
CODING QUERY To promote full compliance with coding requirements relating to patient care, provider participation is requested in all cases of char belt operator uncertainty. Please assist us with the question(s) below: Coding Question(s): Please clarify below, in your clinical opinion, regarding documentation of Lung Mass likely infectious. ( ) Lung Mass likely infectious is likely Pneumonia ( ) Lung Mass likely infectious is likely Lung Abscess ( ) Lung Mass likely infectious is likely Lung Abscess with Pneumonia (x ) Lung Mass likely infectious is unspecified infectious condition without Pneumonia or Abscess ( ) Other: Please Specify __ Physician's Response(s): Thank you Elsa Moreno Principal Diagnosis: "that condition established after study, to be chiefly responsible for occasioning the admission of the patient to the hospital for care." Co-Existing Principal Diagnosis: "when two or more diagnoses equally meet the criteria for principal diagnosis as determined by the circumstances of admission , diagnostic work up, and/or therapy provided, and the Alphabetic Index, Tabular List, or another coding guideline does not provide sequencing direction , any one of the diagnoses may be sequenced first." "When the physician has documented what appears to be a current diagnosis in the body of the record, but has not included the diagnosis in the final diagnostic statement, the physician should be asked whether the diagnosis should be added." (Source Coding [facility] 2 QTR90. p3-4) BEN
== END 2018-07-20 12:35 | disposition home or self-care (01) | DRG 204 ==
LOC: ED 15:58 → SUATTDRO 19:28 → 3W 19:28